=== PATIENT | female | born 1955 | race Hispanic/Latino ===

== ENCOUNTER 2017-12-06 07:53 | Observation (INO) | payer OTHER ==
[2017-12-05 16:07] LABS: BASOPHILS % (AUTO) 0.7 % (0.0-5.0); EOSINOPHILS % (AUTO) 2.4 % (0.0-8.0); HEMATOCRIT 36.8 % (36-48); LYMPHOCYTES % (AUTO) 31.5 % (21.0-51.0); MEAN CORPUSCULAR HEMOGLOBIN 28.8 pg (27.0-33.0); MEAN CORPUSCULAR VOLUME 84.7 fL (79-99); MONOCYTES % (AUTO) 9.8 % (3.0-13.0); NEUTROPHILS % (AUTO) 55.6 % (40.0-77.0); PLATELET COUNT (AUTO) 312 K/uL (130-400); RED BLOOD CELL COUNT(AUTO) 4.34 MIL/uL (4.00-5.50); WHITE BLOOD COUNT (AUTO) 7.9 K/uL (4.8-10.8)
[2017-12-05 16:09] VITALS: BP 143/59
[2017-12-05 16:21] LABS: CREATININE 0.9 mg/dL (0.5-1.5); POTASSIUM 3.9 mmol/L (3.5-5.1)
[~2017-12-06] VITALS: Ht 165.1 cm; Wt 104.9 kg
[2017-12-06] VITALS (20 sets, daily range): BP systolic 130–167; BP diastolic 56–72
[2017-12-06] MEDS ORDERED: LACTATED RINGERS 1000ML 1,000 ML IV ONE (08:07)
[2017-12-06] MEDS: CEFAZOLIN SODIUM 1 GM VIAL ONE ×2 (10:24→11:16)
[2017-12-06] MEDS ORDERED: ONDANSETRON HCL 4 MG/2 ML VIAL ONE (10:51)
[2017-12-06] MEDS ORDERED: FAMOTIDINE/PF 20 MG/2 ML VIAL IV ONE (10:51)
[2017-12-06] MEDS ORDERED: LIDOCAINE PF 2% 5ML ABBOJECT ONE (10:56)
[2017-12-06] MEDS ORDERED: FENTANYL CITRATE PF 50 MCG/1 ML 2ML VIAL ONE ×2 (10:56→13:31)
[2017-12-06] MEDS ORDERED: ROPIVACAINE 0.5% 5MG/ML 30ML IJ ONE ×2 (11:00→11:02)
[2017-12-06] MEDS ORDERED: CEFAZOLIN SODIUM 1 GM VIAL ONE (11:30)
[2017-12-06] MEDS ORDERED: PROPOFOL 10 MG/ML 20ML VIAL IV ONE (13:14)
[2017-12-06] MEDS ORDERED: POTASSIUM CHLORIDE 20 MEQ ERTAB PO PRN (13:15)
[2017-12-06] MEDS ORDERED: LIDOCAINE HCL-MPF 1% 2ML VIAL IVP PRN (13:15)
[2017-12-06] MEDS ORDERED: POTASSIUM CHLORIDE 20MEQ/100ML 100 ML IV PRN (13:15)
[2017-12-06] MEDS ORDERED: TEMAZEPAM 15 MG CAPSULE PO PRN (13:15)
[2017-12-06] MEDS ORDERED: HYDROCODONE/ACETAMINOPHEN 5/325 MG TAB PO PRN ×2 (13:15)
[2017-12-06] MEDS ORDERED: POTASSIUM CHLORIDE 10% ELIXIR 20 MEQ/15 ML UDCUP PO PRN (13:15)
[2017-12-06] MEDS ORDERED: DiphenhydrAMINE HCL 50 MG/ML VIAL IVP PRN (13:15)
[2017-12-06] MEDS ORDERED: CALCIUM CARBONATE 500 MG TABLET PO PRN (13:15)
[2017-12-06] MEDS ORDERED: MEPERIDINE-PF 25 MG/ML SYG ONE (13:52)
[2017-12-06] MEDS: SODIUM CHLORIDE 0.9% 1000ML 1,000 ML IV SCH ×2 (15:33→23:06)
[2017-12-06] MEDS: CEFAZOLIN 3GM /D5W 100ML 100 ML IV SCH (18:49)
[2017-12-06] MEDS: FAMOTIDINE 20MG TAB 20 MG TAB PO SCH (21:13)
[2017-12-06] MEDS: ENOXAPARIN SODIUM 40 MG/0.4 ML SYRINGE SQ SCH (21:15)
[2017-12-06] MEDS: KETOROLAC TROMETHAMINE 30MG/ML IV PRN (22:05)
[2017-12-07] MEDS: CEFAZOLIN 3GM /D5W 100ML 100 ML IV SCH (01:55)
[2017-12-07 04:17] LABS: MEAN CORPUSCULAR HEMOGLOBIN 28.6 pg (27.0-33.0); MEAN CORPUSCULAR VOLUME 84.1 fL (79-99); PLATELET COUNT (AUTO) 293 K/uL (130-400); RED CELL DISTRIBUTION WIDTH 13.5 % (11.0-15.5)
[2017-12-07 04:33] LABS: CREATININE 0.9 mg/dL (0.5-1.5); POTASSIUM 3.9 mmol/L (3.5-5.1)
[2017-12-07 04:43] VITALS: BP 115/56
[2017-12-07 08:08] VITALS: BP 138/64
[2017-12-07] MEDS: FAMOTIDINE 20MG TAB 20 MG TAB PO SCH (08:33)
[2017-12-07] MEDS: ENOXAPARIN SODIUM 40 MG/0.4 ML SYRINGE SQ SCH (08:33)
[2017-12-07] MEDS ORDERED: POLYETHYLENE GLYCOL 3350 17 GM POWD.PACK PO SCH (09:00)
[2017-12-07] MEDS ORDERED: HYDR-2132 PO (10:55)
[2017-12-07] MEDS ORDERED: ASPI-1012 PO (10:55)
[2017-12-07 11:15] VITALS: BP 185/77
[2017-12-07] MEDS: KETOROLAC TROMETHAMINE 30MG/ML IV PRN (11:43)
[2017-12-07] MEDS ORDERED: PSYLLIUM SEED 1 EACH PACKET PO SCH (12:00)
[2017-12-08] MEDS ORDERED: BISACODYL 5 MG TABLET.DR PO PRN (13:15)
[2017-12-09] MEDS ORDERED: BISACODYL 10 MG SUPP.RECT RC PRN (13:15)
== END 2017-12-07 14:18 | disposition home or self-care (01) ==
LOC: DAH 07:53 → DAHIP 07:54 → 4AH 14:11
PROVIDERS: ADMIT Orthopaedic Surgery; ATTEND Orthopaedic Surgery
DX: S82.001A Unspecified fracture of right patella, initial encounter for closed fracture (principal); E66.9 Obesity, unspecified; W01.0XXA Fall on same level from slipping, tripping and stumbling without subsequent striking against object, initial encounter; Y93.89 Activity, other specified; Y92.230 Patient room in hospital as the place of occurrence of the external cause; Y99.0 Civilian activity done for income or pay; Z82.49 Family history of ischemic heart disease and other diseases of the circulatory system; Z79.899 Other long term (current) drug therapy; Z90.710 Acquired absence of both cervix and uterus
CPT/HCPCS: 27524; 36415 ×2; 76000; 80048 ×2; 85025; 85027; 96365; 96366; 96372 ×2; 96375; 96376; 97116 ×2; 97161; A4344; A4649; A4930 ×3; C1713 ×2; G0378 ×30; G8978; G8979; G8980; G8981; G8982; G8983; J0690 ×3; J1650 ×2; J1885 ×2; J2001; J2175; J2405; J2704; J2795 ×2; J3010 ×2; J3490; J7120 ×2

== ENCOUNTER 2017-12-30 10:39 | Observation (INO) | payer OTHER ==
[2017-12-30] VITALS (19 sets, daily range): BP systolic 121–160; BP diastolic 60–81
[~2017-12-30] VITALS: Ht 163.8 cm; Wt 104.1 kg
[~2017-12-30 10:39] MED LIST: ASPI-1012 PO; HYDR-2132 PO
[2017-12-30 11:44] LABS: BASOPHILS % (AUTO) 0.7 % (0.0-5.0); EOSINOPHILS % (AUTO) 2.7 % (0.0-8.0); HEMATOCRIT 37.2 % (36-48); LYMPHOCYTES % (AUTO) 38.3 % (21.0-51.0); MEAN CORPUSCULAR HEMOGLOBIN 28.8 pg (27.0-33.0); MEAN CORPUSCULAR HGB CONC 33.8 g/dL (32.0-36.0); MEAN CORPUSCULAR VOLUME 85.1 fL (79-99); MONOCYTES % (AUTO) 8.7 % (3.0-13.0); NEUTROPHILS % (AUTO) 49.6 % (40.0-77.0); PLATELET COUNT (AUTO) 325 K/uL (130-400); RED BLOOD CELL COUNT(AUTO) 4.37 MIL/uL (4.00-5.50); RED CELL DISTRIBUTION WIDTH 13.8 % (11.0-15.5); WHITE BLOOD COUNT (AUTO) 7.8 K/uL (4.8-10.8)
[2017-12-30 11:56] LABS: CREATININE 0.8 mg/dL (0.5-1.5); POTASSIUM 4.6 mmol/L (3.5-5.1)
[2017-12-30] MEDS ORDERED: IBUP-2077 PO (11:56)
[2017-12-30] MEDS ORDERED: LACTATED RINGERS 1000ML 1,000 ML IV ONE (12:26)
[2017-12-30] MEDS: CEFAZOLIN SODIUM 1 GM VIAL ONE ×2 (12:45→15:15)
[2017-12-30] MEDS ORDERED: CEFAZOLIN SODIUM 1 GM VIAL ONE (13:38)
[2017-12-30] MEDS ORDERED: PROPOFOL 10 MG/ML 20ML VIAL IV ONE ×2 (13:56→17:07)
[2017-12-30] MEDS ORDERED: LIDOCAINE PF 2% 5ML ABBOJECT ONE (13:56)
[2017-12-30] MEDS ORDERED: DEXAMETHASONE SOD PHOSPHATE 10MG/ML 1ML VIAL ONE (13:56)
[2017-12-30] MEDS ORDERED: GLYCOPYRROLATE 1 MG/5 ML SYRINGE ONE (13:56)
[2017-12-30] MEDS ORDERED: ROCURONIUM 10MG/1ML SYR 10 MG/ML ML ONE (13:57)
[2017-12-30] MEDS ORDERED: NEOSTIGMINE 5MG/5ML SYR IV ONE (13:57)
[2017-12-30] MEDS ORDERED: ONDANSETRON HCL 4 MG/2 ML VIAL ONE (13:57)
[2017-12-30] MEDS ORDERED: MIDAZOLAM HCL 1 MG/ML 2ML VIAL ONE (13:57)
[2017-12-30] MEDS ORDERED: FENTANYL CITRATE PF 50 MCG/1 ML 2ML VIAL ONE ×2 (13:58→16:48)
[2017-12-30] MEDS ORDERED: ROPIVACAINE 0.5% 5MG/ML 30ML IJ ONE (14:06)
[2017-12-30] MEDS ORDERED: SODIUM CHLORIDE 0.9% 10 ML VIAL ONE (15:24)
[2017-12-30] MEDS ORDERED: SUCCINYLCHOLINE CHLORIDE 20 MG/ML 10 ML VIAL ONE (16:22)
[2017-12-30] MEDS ORDERED: HYDROCODONE/ACETAMINOPHEN 5/325 MG TAB PO PRN (17:45)
[2017-12-30] MEDS ORDERED: POTASSIUM CHLORIDE 20MEQ/100ML 100 ML IV PRN (17:45)
[2017-12-30] MEDS ORDERED: LIDOCAINE HCL-MPF 1% 2ML VIAL IVP PRN (17:45)
[2017-12-30] MEDS ORDERED: POTASSIUM CHLORIDE 10% ELIXIR 20 MEQ/15 ML UDCUP PO PRN (17:45)
[2017-12-30] MEDS ORDERED: POTASSIUM CHLORIDE 20 MEQ ERTAB PO PRN (17:45)
[2017-12-30] MEDS ORDERED: DiphenhydrAMINE HCL 50 MG/ML VIAL IVP PRN (17:45)
[2017-12-30] MEDS ORDERED: MEPERIDINE-PF 25 MG/ML SYG ONE ×2 (18:44→18:56)
[2017-12-30] MEDS: SODIUM CHLORIDE 0.9% 1000ML 1,000 ML IV SCH (20:26)
[2017-12-30] MEDS: HYDROCODONE/ACETAMINOPHEN 5/325 MG TAB PO PRN (20:27)
[2017-12-30] MEDS: FAMOTIDINE 20MG TAB 20 MG TAB PO SCH (21:38)
[2017-12-30] MEDS: CLINDAMYCIN 900 MG/D5% WATER 50 ML IVPB SCH (22:53)
[2017-12-31 00:30] VITALS: BP 120/82
[2017-12-31] MEDS: HYDROCODONE/ACETAMINOPHEN 5/325 MG TAB PO PRN (03:24)
[2017-12-31] MEDS: KETOROLAC TROMETHAMINE 30MG/ML IV PRN ×2 (03:29→13:04)
[2017-12-31] MEDS: SODIUM CHLORIDE 0.9% 1000ML 1,000 ML IV SCH (03:44)
[2017-12-31 04:28] LABS: HEMATOCRIT 34.7 % (36-48); MEAN CORPUSCULAR HEMOGLOBIN 28.6 pg (27.0-33.0); MEAN CORPUSCULAR HGB CONC 33.8 g/dL (32.0-36.0); MEAN CORPUSCULAR VOLUME 84.6 fL (79-99); PLATELET COUNT (AUTO) 324 K/uL (130-400); RED CELL DISTRIBUTION WIDTH 14.3 % (11.0-15.5); WHITE BLOOD COUNT (AUTO) 11.3 K/uL (4.8-10.8)
[2017-12-31 04:51] LABS: CREATININE 0.8 mg/dL (0.5-1.5); POTASSIUM 4.6 mmol/L (3.5-5.1)
[2017-12-31 05:46] VITALS: BP 110/60
[2017-12-31] MEDS: CLINDAMYCIN 900 MG/D5% WATER 50 ML IVPB SCH (06:01)
[2017-12-31] MEDS ORDERED: HYDROCODONE/ACETAMINOPHEN 5/325 MG TAB PO PRN ×2 (07:45)
[2017-12-31 08:02] VITALS: BP 125/60
[2017-12-31] MEDS: FAMOTIDINE 20MG TAB 20 MG TAB PO SCH (08:33)
[2017-12-31] MEDS ORDERED: ENOXAPARIN SODIUM 40 MG/0.4 ML SYRINGE SQ SCH (09:00)
[2017-12-31] MEDS ORDERED: POLYETHYLENE GLYCOL 3350 17 GM POWD.PACK PO SCH (09:00)
[2017-12-31 11:26] VITALS: BP 113/75
[2017-12-31] MEDS ORDERED: PSYLLIUM SEED 1 EACH PACKET PO SCH (12:00)
[2017-12-31] MEDS ORDERED: HYDR-2132 PO (16:14)
[2017-12-31] MEDS ORDERED: ASPI-1012 PO (16:14)
[2017-12-31 16:34] VITALS: BP_SYST 134; BP_SYST 146; BP_DIAS 63; BP_DIAS 68
[2018-01-01] MEDS ORDERED: BISACODYL 5 MG TABLET.DR PO PRN (17:45)
[2018-01-02] MEDS ORDERED: BISACODYL 10 MG SUPP.RECT RC PRN (17:45)
== END 2017-12-31 18:42 | disposition home or self-care (01) ==
LOC: DAH 10:39 → 4AH 10:40
PROVIDERS: ADMIT Orthopaedic Surgery; ATTEND Orthopaedic Surgery
DX: S82.031K Displaced transverse fracture of right patella, subsequent encounter for closed fracture with nonunion (principal); E66.01 Morbid (severe) obesity due to excess calories; W19.XXXD Unspecified fall, subsequent encounter; Z79.899 Other long term (current) drug therapy; Z82.49 Family history of ischemic heart disease and other diseases of the circulatory system; Z83.3 Family history of diabetes mellitus
CPT/HCPCS: 27524; G8996; G8997; G8998; 36415; 76000; 80048; 85025; 85027; 92610; 96365; 96366; 96372; 96375; 96376; A4218; G0378; J0330; J0690; J1100; J1650; J1885; J2001; J2175; J2250; J2405; J2704; J2710; J2795; J3010; J3490; J7030; J7120